=== PATIENT | female | born 1955 | race Caucasian/White ===

== ENCOUNTER 2022-08-14 16:06 | Inpatient (IN) | payer MEDICAID, MEDICARE ==
[~2022-08-14 16:06] MED LIST: Iopamidol 370 76% 100 ML VIAL ONE
[2022-08-14] MEDS ORDERED: cefTRIAXone\\ROCEPHIN 2 GM VIAL ONE (16:25)
[2022-08-14] MEDS ORDERED: Azithromycin 500 MG VIAL ONE (16:25)
[2022-08-14 16:29] LABS: Actual Bicarbonate (HCO3v) 21 mEq/L (22-28); Base Excess -2.5 mEq/L (-2.0 to +3.0); Calcium, Ionized (venous) 1.07 mmol/L (1.16-1.32); Chloride (VBG) 105 mmol/L (98-106); Hemoglobin (Hb) 13.1 g/dL (11.7-16.1); Potassium (VBG) 3.95 mmol/L (3.70-5.30); Puncture Site Other Site; RapidComm Collect By LAB TECH; Sodium 135.9 mmol/L (133-146); pH (venous) 7.43 (7.32-7.43)
[2022-08-14 16:37] LABS: #Eosinphils 0.2 10x3/uL (0.0-0.5); #Monocytes 0.8 10x3/uL (0.0-1.1); #Neutrophils 7.5 10x3/uL (1.5-8.4); %Basophils 0.2 % (0.0-2.0); %Eosinophils 1.7 % (0.0-6.0); %Lymphocytes 12.2 % (18.0-47.0); %Monocytes 8.1 % (0.0-10.0); %Neutrophils 77.4 % (40.0-75.0); Hemoglobin 11.6 g/dL (12.0-15.5); Mean Corpuscular HGB CONC 32.5 g/dL (32.0-36.0); Mean Corpuscular Hemoglobin 28.4 pg (27.0-33.0); Mean Corpuscular Volume 87.5 fl (81.6-98.3); Mean Platelet Volume 9.2 fl (7.4-10.4); Platelet Count 216 10x3/uL (150-450); RBC Distribution Width 15.7 % (11.5-14.5); Red Blood Cell (RBC) Count 4.08 10x6/uL (3.90-5.03); White Blood Cell (WBC) Count 9.7 10x3/uL (3.5-10.5)
[2022-08-14] MEDS ORDERED: Acetaminophen 500 MG TAB ONE (16:40)
[2022-08-14 16:52] LABS: ALT (SGPT) 20 U/L (8-55); AST (SGOT) 29 U/L (5-34); Alkaline Phosphatase 78 U/L (40-110); Anion Gap 17 mmol/L (10-20); BUN (Urea Nitrogen) 13 mg/dL (9.8-20.1); Calc. Creatinine Clearance 0 mL/min (70-130); Calcium 9.2 mg/dL (7.8-10.44); Carbon Dioxide 18 mmol/L (23-31); Chloride 106 mmol/L (98-107); Estimated GFR 75; Globulin 3.5 g/dL (2.4-3.5); Glucose 103 mg/dL (80-115); Protein, Total 7.5 g/dL (5.8-8.1); Sodium 137 mmol/L (136-145)
[2022-08-14] MEDS ORDERED: methylPREDNISolone Sod Succ/PF 125 MG/2 ML VIAL ONE (16:57)
[2022-08-14] MEDS ORDERED: Ondansetron PF 4 MG/2 ML Vial ONE (16:58)
[2022-08-14 17:01] LABS: Bilirubin, Total 0.7 mg/dL (0.2-1.2)
[2022-08-14 17:24] LABS: SARS-CoV-2 NAA Rapid Test Not Detected (NotDetected)
[2022-08-14] MEDS ORDERED: Albuterol Sulfate 2.5 mg/0.5 ml Neb ONE (17:34)
[2022-08-14] MEDS ORDERED: Albuterol Sulfate 2.5 mg/3 ml Neb ONE (17:35)
[2022-08-14] MEDS ORDERED: Ondansetron PF 4 MG/2 ML Vial IVP PRN (19:12)
[2022-08-14] MEDS ORDERED: Calcium Carbonate 500 MG ChewTAB PO PRN (19:12)
[2022-08-14] MEDS ORDERED: Senokot S 8.6-50 MG TAB PO PRN (19:12)
[2022-08-14] MEDS ORDERED: Guaifenesin DM 100-10/5 ML UDCUP PO PRN (19:12)
[2022-08-14] MEDS ORDERED: Acetaminophen 325 MG TAB PO PRN (19:12)
[2022-08-14 19:29] LABS: Lactic Acid 0.8 mmol/L (0.5-2.2)
[2022-08-14 20:32] VITALS: BMI 41.3
[2022-08-14] MEDS: Rosuvastatin 20 MG TAB PO SCH (21:00)
[2022-08-14] MEDS: Famotidine 20 MG TAB PO SCH (21:00)
[2022-08-14] MEDS: guaiFENesin ER 600 MG TAB PO SCH (21:00)
[2022-08-14] MEDS: Benzonatate 100 MG CAP PO SCH (21:00)
[2022-08-14] MEDS ORDERED: Lactated Ringer's 500 ML IV SCH (21:00)
[2022-08-14 23:51] LABS: Legionella Urinary Ag Negative (Negative); Strep pneumo Urine Ag NEGATIVE (NEGATIVE)
[2022-08-14] MEDS ORDERED: methylPREDNISolone Sod Succ 40 MG VIAL IVP SCH (23:59)
[2022-08-15] MEDS ORDERED: Pharmacy to Dose ABX/VANCOMYCIN IVPB PRN (00:51)
[2022-08-15] MEDS ORDERED: VANCOMYCIN 2 GRAM/400 ML BAG 2 GM in Premix Bag 1 BAG IVPB SCH (01:00)
[2022-08-15] MEDS ORDERED: VANCOMYCIN 2 GRAM/400 ML BAG ONE (01:33)
[2022-08-15] MEDS: Enoxaparin Sodium 100 MG/ML SYRINGE SC SCH ×2 (01:37→13:40)
[2022-08-15 05:05] LABS: Hemoglobin 10.9 g/dL (12.0-15.5); Mean Corpuscular Hemoglobin 28.6 pg (27.0-33.0); Mean Corpuscular Volume 89.5 fl (81.6-98.3); Mean Platelet Volume 9.4 fl (7.4-10.4); Platelet Count 208 10x3/uL (150-450); RBC Distribution Width 15.6 % (11.5-14.5); Red Blood Cell (RBC) Count 3.81 10x6/uL (3.90-5.03); White Blood Cell (WBC) Count 10.8 10x3/uL (3.5-10.5)
[2022-08-15 05:15] LABS: Anion Gap 13 mmol/L (10-20); BUN (Urea Nitrogen) 13 mg/dL (9.8-20.1); Calc. Creatinine Clearance 117 mL/min (70-130); Calcium 8.7 mg/dL (7.8-10.44); Carbon Dioxide 19 mmol/L (23-31); Chloride 111 mmol/L (98-107); Estimated GFR 88; Glucose 150 mg/dL (80-115); Potassium 4.4 mmol/L (3.5-5.1); Sodium 139 mmol/L (136-145)
[2022-08-15 05:25] LABS: MDiff Complete? YES
[2022-08-15 05:32] LABS: Band 20 % (5-11); Lymphocytes 6 % (21-51); Monocytes 2 % (0-10); Neutrophil 72 % (42-75)
[2022-08-15 05:33] LABS: Platelet Morphology Comment Appears Adequate; RBC Morphology Normal
[2022-08-15] MEDS: methylPREDNISolone Sod Succ 40 MG VIAL IVP SCH ×2 (06:20→17:56)
[2022-08-15] MEDS: Levothyroxine Sodium 50 MCG TAB PO SCH (06:20)
[2022-08-15] MEDS: Mometasone/Formoterol 200/5 60 PUFF INH SCH ×2 (07:10→20:15)
[2022-08-15] MEDS ORDERED: Enoxaparin Sodium 40 MG/0.4 ML SYRINGE SC SCH (09:00)
[2022-08-15] MEDS ORDERED: Cefepime 1 GM VIAL ONE (10:01)
[2022-08-15] MEDS: Clopidogrel Bisulfate 75 MG TAB PO SCH (10:02)
[2022-08-15] MEDS: Benzonatate 100 MG CAP PO SCH ×3 (10:02→20:47)
[2022-08-15] MEDS: guaiFENesin ER 600 MG TAB PO SCH ×2 (10:02→21:19)
[2022-08-15] MEDS: Famotidine 20 MG TAB PO SCH ×2 (10:03→21:22)
[2022-08-15] MEDS: PARoxetine 20 MG TAB PO SCH (10:03)
[2022-08-15] MEDS: Cefepime 1 GM in Sodium Chloride 0.9% 100 ML IVPB SCH ×2 (10:03→21:13)
[2022-08-15] MEDS: Oxybutynin ER 5 MG TAB PO SCH (10:04)
[2022-08-15] MEDS: Vancomycin HCl 1 GM in Sodium Chloride 0.9% 250 ML 250 ML IVPB SCH (13:40)
[2022-08-15] MEDS ORDERED: Azithromycin 500 MG in Sodium Chloride 0.9% 250 ML 250 ML IVPB SCH (17:00)
[2022-08-15] MEDS ORDERED: cefTRIAXone\\ROCEPHIN 1 GM in Sodium Chloride 0.9% 100 ML IVPB SCH (18:00)
[2022-08-15] MEDS ORDERED: ALPRAZolam 0.5 MG TAB PO PRN (18:33)
[2022-08-15] MEDS ORDERED: Furosemide 20 MG/2 ML VIAL SLOW IVP SCH (19:00)
[2022-08-15] MEDS ORDERED: Albuterol Sulfate 2.5 mg/3 ml Neb NEB SCH (19:00)
[2022-08-15] MEDS ORDERED: Furosemide 40 MG/4 ML VIAL ONE (19:57)
[2022-08-15] MEDS: Rosuvastatin 20 MG TAB PO SCH (20:49)
[2022-08-16] MEDS: Vancomycin HCl 1 GM in Sodium Chloride 0.9% 250 ML 250 ML IVPB SCH (01:42)
[2022-08-16] MEDS: Enoxaparin Sodium 100 MG/ML SYRINGE SC SCH (01:44)
[2022-08-16] MEDS: methylPREDNISolone Sod Succ 40 MG VIAL IVP SCH ×2 (07:06→18:09)
[2022-08-16] MEDS: Levothyroxine Sodium 50 MCG TAB PO SCH (07:07)
[2022-08-16] MEDS: Mometasone/Formoterol 200/5 60 PUFF INH SCH ×2 (08:15→19:40)
[2022-08-16] MEDS: PARoxetine 20 MG TAB PO SCH (10:15)
[2022-08-16] MEDS: Cefepime 2 GM in Sodium Chloride 0.9% 100 ML IVPB SCH ×2 (10:15→20:30)
[2022-08-16] MEDS: Benzonatate 100 MG CAP PO SCH ×3 (10:15→20:30)
[2022-08-16] MEDS: Clopidogrel Bisulfate 75 MG TAB PO SCH (10:15)
[2022-08-16] MEDS: Famotidine 20 MG TAB PO SCH ×2 (10:15→20:29)
[2022-08-16] MEDS: Oxybutynin ER 5 MG TAB PO SCH (10:15)
[2022-08-16] MEDS: guaiFENesin ER 600 MG TAB PO SCH ×2 (10:15→20:29)
[2022-08-16] MEDS: Apixaban 5 MG TAB PO SCH ×2 (10:18→21:50)
[2022-08-16 11:59] LABS: Vancomycin, Trough 16.2 ug/mL
[2022-08-16] MEDS ORDERED: Vancomycin HCl 750 MG in Sodium Chloride 0.9% 250 ML 250 ML IVPB SCH (13:00)
[2022-08-16] MEDS: hydrOXYzine 25 MG TAB PO PRN (18:09)
[2022-08-16] MEDS: Rosuvastatin 20 MG TAB PO SCH (20:30)
[2022-08-17] MEDS: hydrOXYzine 25 MG TAB PO PRN ×2 (01:19→09:45)
[2022-08-17] MEDS: Levothyroxine Sodium 50 MCG TAB PO SCH (06:13)
[2022-08-17] MEDS: methylPREDNISolone Sod Succ 40 MG VIAL IVP SCH ×2 (06:14→18:18)
[2022-08-17] MEDS: Mometasone/Formoterol 200/5 60 PUFF INH SCH ×2 (07:00→20:40)
[2022-08-17] MEDS: guaiFENesin ER 600 MG TAB PO SCH ×2 (09:32→21:14)
[2022-08-17] MEDS: Apixaban 5 MG TAB PO SCH ×2 (09:33→21:13)
[2022-08-17] MEDS: Clopidogrel Bisulfate 75 MG TAB PO SCH (09:33)
[2022-08-17] MEDS: PARoxetine 20 MG TAB PO SCH (09:33)
[2022-08-17] MEDS: Cefepime 2 GM in Sodium Chloride 0.9% 100 ML IVPB SCH ×2 (09:33→21:14)
[2022-08-17] MEDS: Oxybutynin ER 5 MG TAB PO SCH (09:33)
[2022-08-17] MEDS: Benzonatate 100 MG CAP PO SCH ×3 (09:33→21:14)
[2022-08-17] MEDS: Famotidine 20 MG TAB PO SCH ×2 (09:33→21:14)
[2022-08-17] MEDS ORDERED: hydrOXYzine 10 MG TAB PO PRN (11:43)
[2022-08-17] MEDS: Rosuvastatin 20 MG TAB PO SCH (21:14)
[2022-08-18 04:41] LABS: Hemoglobin 10.8 g/dL (12.0-15.5); Mean Corpuscular HGB CONC 31.9 g/dL (32.0-36.0); Mean Corpuscular Hemoglobin 28.4 pg (27.0-33.0); Mean Corpuscular Volume 89.2 fl (81.6-98.3); Mean Platelet Volume 9.4 fl (7.4-10.4); Platelet Count 224 10x3/uL (150-450); RBC Distribution Width 15.4 % (11.5-14.5); White Blood Cell (WBC) Count 8.4 10x3/uL (3.5-10.5)
[2022-08-18 04:47] LABS: Anion Gap 14 mmol/L (10-20); BUN (Urea Nitrogen) 19 mg/dL (9.8-20.1); Calc. Creatinine Clearance 110 mL/min (70-130); Calcium 9.1 mg/dL (7.8-10.44); Carbon Dioxide 22 mmol/L (23-31); Chloride 110 mmol/L (98-107); Estimated GFR 82; Glucose 131 mg/dL (80-115); Potassium 4.5 mmol/L (3.5-5.1); Sodium 141 mmol/L (136-145)
[2022-08-18] MEDS: Levothyroxine Sodium 50 MCG TAB PO SCH (06:43)
[2022-08-18] MEDS: Mometasone/Formoterol 200/5 60 PUFF INH SCH ×2 (07:10→22:58)
[2022-08-18] MEDS ORDERED: predniSONE 20 MG TAB PO SCH (08:00)
[2022-08-18] MEDS: Apixaban 5 MG TAB PO SCH ×2 (09:50→23:34)
[2022-08-18] MEDS: methylPREDNISolone Sod Succ/PF 125 MG/2 ML VIAL IVP SCH ×2 (09:51→23:38)
[2022-08-18] MEDS: Benzonatate 100 MG CAP PO SCH ×3 (09:51→23:34)
[2022-08-18] MEDS: Clopidogrel Bisulfate 75 MG TAB PO SCH (09:51)
[2022-08-18] MEDS: guaiFENesin ER 600 MG TAB PO SCH ×2 (09:51→23:39)
[2022-08-18] MEDS: Famotidine 20 MG TAB PO SCH ×2 (09:51→23:35)
[2022-08-18] MEDS: PARoxetine 20 MG TAB PO SCH (09:51)
[2022-08-18] MEDS: Cefepime 2 GM in Sodium Chloride 0.9% 100 ML IVPB SCH ×2 (09:52→23:37)
[2022-08-18] MEDS: Doxycycline 100 MG in Sodium Chloride 0.9% 100 ML IVPB SCH ×2 (09:56→23:30)
[2022-08-18] MEDS: Oxybutynin ER 5 MG TAB PO SCH (11:02)
[2022-08-18] MEDS: metroNIDAZOLE 500 MG in Premix Bag 1 BAG IVPB SCH ×2 (15:49→23:38)
[2022-08-18] MEDS: Rosuvastatin 20 MG TAB PO SCH (21:00)
[2022-08-18] MEDS: hydrALAZINE 25 MG TAB PO SCH (23:35)
[2022-08-19] MEDS: Levothyroxine Sodium 50 MCG TAB PO SCH (05:33)
[2022-08-19] MEDS: metroNIDAZOLE 500 MG in Premix Bag 1 BAG IVPB SCH ×2 (05:33→12:39)
[2022-08-19] MEDS: hydrOXYzine 10 MG TAB PO SCH ×2 (05:34→18:33)
[2022-08-19 06:23] LABS: ALT (SGPT) 44 U/L (8-55); AST (SGOT) 32 U/L (5-34); Albumin 3.6 g/dL (3.4-4.8); Alkaline Phosphatase 73 U/L (40-110); Anion Gap 13 mmol/L (10-20); BUN (Urea Nitrogen) 20 mg/dL (9.8-20.1); Bilirubin, Total 0.4 mg/dL (0.2-1.2); Calc. Creatinine Clearance 111 mL/min (70-130); Carbon Dioxide 23 mmol/L (23-31); Chloride 109 mmol/L (98-107); Estimated GFR 83; Globulin 3.3 g/dL (2.4-3.5); Glucose 98 mg/dL (80-115); Magnesium 2.2 mg/dL (1.6-2.6); Phosphorus 2.4 mg/dL (2.3-4.7); Potassium 3.9 mmol/L (3.5-5.1); Protein, Total 6.9 g/dL (5.8-8.1); Sodium 141 mmol/L (136-145)
[2022-08-19 06:47] LABS: #Monocytes 0.9 10x3/uL (0.0-1.1); #Neutrophils 6.9 10x3/uL (1.5-8.4); %Basophils 0.4 % (0.0-2.0); %Eosinophils 0.3 % (0.0-6.0); %Lymphocytes 22.3 % (18.0-47.0); %Monocytes 8.6 % (0.0-10.0); Hemoglobin 11.2 g/dL (12.0-15.5); Mean Corpuscular HGB CONC 32.3 g/dL (32.0-36.0); Mean Corpuscular Hemoglobin 28.2 pg (27.0-33.0); Mean Corpuscular Volume 87.4 fl (81.6-98.3); Mean Platelet Volume 9.5 fl (7.4-10.4); Platelet Count 260 10x3/uL (150-450); RBC Distribution Width 15.2 % (11.5-14.5); Red Blood Cell (RBC) Count 3.97 10x6/uL (3.90-5.03); White Blood Cell (WBC) Count 10.6 10x3/uL (3.5-10.5)
[2022-08-19] MEDS: Mometasone/Formoterol 200/5 60 PUFF INH SCH ×2 (07:10→20:54)
[2022-08-19] MEDS: methylPREDNISolone Sod Succ/PF 125 MG/2 ML VIAL IVP SCH ×2 (12:10→20:28)
[2022-08-19] MEDS: Cefepime 2 GM in Sodium Chloride 0.9% 100 ML IVPB SCH ×2 (12:10→20:30)
[2022-08-19] MEDS: Doxycycline 100 MG in Sodium Chloride 0.9% 100 ML IVPB SCH (12:11)
[2022-08-19] MEDS: Famotidine 20 MG TAB PO SCH ×2 (12:12→20:27)
[2022-08-19] MEDS: PARoxetine 20 MG TAB PO SCH (12:13)
[2022-08-19] MEDS: Apixaban 5 MG TAB PO SCH ×2 (12:13→20:32)
[2022-08-19] MEDS: guaiFENesin ER 600 MG TAB PO SCH ×2 (12:14→20:28)
[2022-08-19] MEDS: Benzonatate 100 MG CAP PO SCH ×3 (12:14→20:27)
[2022-08-19] MEDS: hydrALAZINE 25 MG TAB PO SCH ×2 (12:14→20:28)
[2022-08-19] MEDS: Clopidogrel Bisulfate 75 MG TAB PO SCH (12:14)
[2022-08-19] MEDS: Oxybutynin ER 5 MG TAB PO SCH (12:39)
[2022-08-19] MEDS ORDERED: Diltiazem 125 MG in Sodium Chloride 0.9% 100 ML IVPB SCH ×2 (15:30→22:00)
[2022-08-19] MEDS ORDERED: Vancomycin 1.5 GRAM/300 ML BAG 1.5 GM in Premix Bag 1 BAG IVPB SCH (16:00)
[2022-08-19] MEDS ORDERED: Furosemide 20 MG/2 ML VIAL SLOW IVP SCH ×2 (16:00→17:00)
[2022-08-19] MEDS ORDERED: Furosemide 40 MG/4 ML VIAL ONE (16:05)
[2022-08-19] MEDS: Rosuvastatin 20 MG TAB PO SCH (20:26)
[2022-08-19] MEDS ORDERED: VANCOMYCIN 1.25 GM/250 ML BAG IVPB SCH (21:00)
[2022-08-19] MEDS ORDERED: Metoprolol Tartrate 5 MG/5 ML VIAL ONE (21:38)
[2022-08-19] MEDS ORDERED: Metoprolol Tartrate 5 MG/5 ML VIAL IVP SCH (21:45)
[2022-08-20] MEDS: Vancomycin HCl 750 MG in Sodium Chloride 0.9% 250 ML 250 ML IVPB SCH ×2 (05:06→17:45)
[2022-08-20 05:44] LABS: ALT (SGPT) 43 U/L (8-55); AST (SGOT) 24 U/L (5-34); Albumin 3.7 g/dL (3.4-4.8); Alkaline Phosphatase 71 U/L (40-110); Anion Gap 13 mmol/L (10-20); BUN (Urea Nitrogen) 26 mg/dL (9.8-20.1); Bilirubin, Total 0.5 mg/dL (0.2-1.2); Calc. Creatinine Clearance 113 mL/min (70-130); Calcium 9.1 mg/dL (7.8-10.44); Carbon Dioxide 22 mmol/L (23-31); Chloride 108 mmol/L (98-107); Estimated GFR 84; Globulin 3.4 g/dL (2.4-3.5); Glucose 132 mg/dL (80-115); Potassium 4.2 mmol/L (3.5-5.1); Protein, Total 7.1 g/dL (5.8-8.1); Sodium 139 mmol/L (136-145)
[2022-08-20] MEDS: hydrOXYzine 10 MG TAB PO SCH ×2 (05:51→17:53)
[2022-08-20] MEDS: Levothyroxine Sodium 50 MCG TAB PO SCH (05:51)
[2022-08-20 06:15] LABS: #Basophils 0.1 10x3/uL (0.0-0.2); #Monocytes 0.4 10x3/uL (0.0-1.1); #Neutrophils 8.3 10x3/uL (1.5-8.4); %Basophils 0.5 % (0.0-2.0); %Lymphocytes 12.8 % (18.0-47.0); %Monocytes 3.8 % (0.0-10.0); %Neutrophils 77.7 % (40.0-75.0); Hemoglobin 12.1 g/dL (12.0-15.5); Mean Corpuscular HGB CONC 32.5 g/dL (32.0-36.0); Mean Corpuscular Hemoglobin 27.9 pg (27.0-33.0); Mean Corpuscular Volume 85.9 fl (81.6-98.3); Mean Platelet Volume 9.5 fl (7.4-10.4); Platelet Count 307 10x3/uL (150-450); RBC Distribution Width 15.2 % (11.5-14.5); Red Blood Cell (RBC) Count 4.33 10x6/uL (3.90-5.03); White Blood Cell (WBC) Count 10.6 10x3/uL (3.5-10.5)
[2022-08-20 06:20] LABS: MDiff Complete? YES
[2022-08-20] MEDS ORDERED: Ipratropium Bromide 2.5 ml Neb ONE (07:26)
[2022-08-20] MEDS: Ipratropium Bromide 0.06% Nasal Inhaler 15ml EA NARE SCH ×3 (07:34→14:47)
[2022-08-20 07:46] LABS: Band 4 % (5-11); Lymphocytes 8 % (21-51); Monocytes 6 % (0-10); Neutrophil 82 % (42-75)
[2022-08-20 07:47] LABS: Platelet Morphology Comment Appears Adequate; RBC Morphology Normal
[2022-08-20] MEDS: Ipratropium Bromide 2.5 ml Neb NEB SCH ×5 (08:10→23:45)
[2022-08-20] MEDS: Mometasone/Formoterol 200/5 60 PUFF INH SCH ×2 (08:18→19:14)
[2022-08-20] MEDS: Famotidine 20 MG TAB PO SCH ×2 (09:03→20:21)
[2022-08-20] MEDS: hydrALAZINE 25 MG TAB PO SCH ×2 (09:03→20:21)
[2022-08-20] MEDS: Benzonatate 100 MG CAP PO SCH ×3 (09:03→20:18)
[2022-08-20] MEDS: methylPREDNISolone Sod Succ/PF 125 MG/2 ML VIAL IVP SCH ×2 (09:03→20:18)
[2022-08-20] MEDS: Oxybutynin ER 5 MG TAB PO SCH (09:03)
[2022-08-20] MEDS: guaiFENesin ER 600 MG TAB PO SCH ×2 (09:03→20:21)
[2022-08-20] MEDS: PARoxetine 20 MG TAB PO SCH (09:03)
[2022-08-20] MEDS: Clopidogrel Bisulfate 75 MG TAB PO SCH (09:04)
[2022-08-20] MEDS: Cefepime 2 GM in Sodium Chloride 0.9% 100 ML IVPB SCH ×2 (09:07→20:22)
[2022-08-20] MEDS: Apixaban 5 MG TAB PO SCH ×2 (09:07→20:20)
[2022-08-20] MEDS ORDERED: Melatonin 3 MG TAB PO PRN (17:54)
[2022-08-20] MEDS: Rosuvastatin 20 MG TAB PO SCH (20:20)
[2022-08-21] MEDS: Ipratropium Bromide 2.5 ml Neb NEB SCH ×5 (03:28→20:25)
[2022-08-21 04:58] LABS: Vancomycin, Trough 11.1 ug/mL
[2022-08-21] MEDS: Vancomycin HCl 750 MG in Sodium Chloride 0.9% 250 ML 250 ML IVPB SCH ×2 (04:58→16:29)
[2022-08-21] MEDS: hydrOXYzine 10 MG TAB PO SCH ×2 (06:09→18:49)
[2022-08-21] MEDS: Levothyroxine Sodium 50 MCG TAB PO SCH (06:09)
[2022-08-21] MEDS: Mometasone/Formoterol 200/5 60 PUFF INH SCH ×2 (06:52→20:45)
[2022-08-21] MEDS: methylPREDNISolone Sod Succ/PF 125 MG/2 ML VIAL IVP SCH ×2 (08:55→20:46)
[2022-08-21] MEDS: PARoxetine 20 MG TAB PO SCH (08:55)
[2022-08-21] MEDS: Labetalol HCl 100 MG TAB PO SCH ×2 (08:55→20:47)
[2022-08-21] MEDS: Benzonatate 100 MG CAP PO SCH ×3 (08:55→20:48)
[2022-08-21] MEDS: Oxybutynin ER 5 MG TAB PO SCH (08:55)
[2022-08-21] MEDS: Clopidogrel Bisulfate 75 MG TAB PO SCH (08:56)
[2022-08-21] MEDS: hydrALAZINE 25 MG TAB PO SCH ×2 (08:56→20:47)
[2022-08-21] MEDS: guaiFENesin ER 600 MG TAB PO SCH ×2 (08:56→20:48)
[2022-08-21] MEDS: Cefepime 2 GM in Sodium Chloride 0.9% 100 ML IVPB SCH ×2 (08:56→20:45)
[2022-08-21] MEDS: Famotidine 20 MG TAB PO SCH ×2 (08:56→20:48)
[2022-08-21] MEDS: Apixaban 5 MG TAB PO SCH ×2 (09:13→20:48)
[2022-08-21] MEDS: Rosuvastatin 20 MG TAB PO SCH (20:46)
[2022-08-22] MEDS: Ipratropium Bromide 2.5 ml Neb NEB SCH ×7 (00:01→23:26)
[2022-08-22 05:41] LABS: ALT (SGPT) 65 U/L (8-55); AST (SGOT) 43 U/L (5-34); Albumin 3.5 g/dL (3.4-4.8); Alkaline Phosphatase 74 U/L (40-110); Anion Gap 11 mmol/L (10-20); BUN (Urea Nitrogen) 25 mg/dL (9.8-20.1); Bilirubin, Total 0.4 mg/dL (0.2-1.2); Calc. Creatinine Clearance 120 mL/min (70-130); Calcium 8.7 mg/dL (7.8-10.44); Carbon Dioxide 20 mmol/L (23-31); Chloride 112 mmol/L (98-107); Estimated GFR 91; Glucose 153 mg/dL (80-115); Potassium 4.2 mmol/L (3.5-5.1); Protein, Total 6.5 g/dL (5.8-8.1); Sodium 139 mmol/L (136-145)
[2022-08-22 05:51] LABS: MDiff Complete? YES
[2022-08-22 05:52] LABS: #Monocytes 0.5 10x3/uL (0.0-1.1); #Neutrophils 11.2 10x3/uL (1.5-8.4); %Basophils 0.3 % (0.0-2.0); %Lymphocytes 9.1 % (18.0-47.0); %Monocytes 3.9 % (0.0-10.0); %Neutrophils 80.5 % (40.0-75.0); Mean Corpuscular HGB CONC 32.7 g/dL (32.0-36.0); Mean Corpuscular Hemoglobin 28.1 pg (27.0-33.0); Mean Corpuscular Volume 85.9 fl (81.6-98.3); Mean Platelet Volume 9.4 fl (7.4-10.4); Platelet Count 348 10x3/uL (150-450); RBC Distribution Width 15.7 % (11.5-14.5); Red Blood Cell (RBC) Count 4.27 10x6/uL (3.90-5.03); White Blood Cell (WBC) Count 13.9 10x3/uL (3.5-10.5)
[2022-08-22] MEDS: hydrOXYzine 10 MG TAB PO SCH ×2 (06:38→17:06)
[2022-08-22] MEDS: Vancomycin HCl 750 MG in Sodium Chloride 0.9% 250 ML 250 ML IVPB SCH ×2 (06:38→17:06)
[2022-08-22] MEDS: Levothyroxine Sodium 50 MCG TAB PO SCH (06:38)
[2022-08-22] MEDS: Mometasone/Formoterol 200/5 60 PUFF INH SCH ×2 (07:00→20:02)
[2022-08-22 07:33] LABS: Band 3 % (5-11); Lymphocytes 7 % (21-51); Metamyelocyte 2 % (0-0); Monocytes 6 % (0-10); Myelocyte 1 % (0-0); Neutrophil 80 % (42-75); Reactive Lymphocytes 1 % (0-10)
[2022-08-22 07:34] LABS: Platelet Morphology Comment Appears Adequate
[2022-08-22] MEDS: Oxybutynin ER 5 MG TAB PO SCH (09:19)
[2022-08-22] MEDS: Labetalol HCl 100 MG TAB PO SCH ×2 (09:19→20:44)
[2022-08-22] MEDS: Famotidine 20 MG TAB PO SCH ×2 (09:19→20:44)
[2022-08-22] MEDS: Clopidogrel Bisulfate 75 MG TAB PO SCH (09:19)
[2022-08-22] MEDS: PARoxetine 20 MG TAB PO SCH (09:19)
[2022-08-22] MEDS: guaiFENesin ER 600 MG TAB PO SCH ×2 (09:19→20:44)
[2022-08-22] MEDS: Cefepime 2 GM in Sodium Chloride 0.9% 100 ML IVPB SCH ×2 (09:19→20:51)
[2022-08-22] MEDS: methylPREDNISolone Sod Succ/PF 125 MG/2 ML VIAL IVP SCH (09:19)
[2022-08-22] MEDS: hydrALAZINE 25 MG TAB PO SCH ×2 (09:20→20:43)
[2022-08-22] MEDS: Benzonatate 100 MG CAP PO SCH ×3 (09:20→20:44)
[2022-08-22] MEDS: Apixaban 5 MG TAB PO SCH ×2 (09:29→20:45)
[2022-08-22] MEDS ORDERED: Zolpidem Tartrate 5 MG TAB PO PRN (10:49)
[2022-08-22 11:41] LABS: Bilirubin Neg (Negative); Blood, Urine 50 (Negative); CAUTI Indications for Culture Dysuria,urgency,freq; Clarity Clear (Clear); Glucose, Urine (Dipstick) Normal (Negative); Ketone, Urine Negative (Negative); Leukocyte 25 (Negative); Nitrite Negative (Negative); Protein, Urine (Dipstick) 30 mg/dl (Neg-Trace); Urobilinogen Normal mg/dL (Less than 2)
[2022-08-22 11:43] LABS: Urine Culture Reflex No No
[2022-08-22 11:59] LABS: Bacteria/HPF 2+ HPF (None Seen); Squamous Epithelial 0-3 HPF (0-3); Yeast-Budding 1+ HPF (None Seen); Yeast-Hyphae 1+ HPF (None Seen)
[2022-08-22] MEDS ORDERED: hydrALAZINE 25 MG TAB PO SCH (14:30)
[2022-08-22 17:39] LABS: Vancomycin, Trough 10.8 ug/mL
[2022-08-22] MEDS: Rosuvastatin 20 MG TAB PO SCH (20:44)
[2022-08-23] MEDS: Ipratropium Bromide 2.5 ml Neb NEB SCH ×4 (02:47→15:15)
[2022-08-23 05:39] LABS: #Monocytes 1.1 10x3/uL (0.0-1.1); #Neutrophils 11.5 10x3/uL (1.5-8.4); %Basophils 0.2 % (0.0-2.0); %Lymphocytes 10.8 % (18.0-47.0); %Monocytes 7.2 % (0.0-10.0); %Neutrophils 76.8 % (40.0-75.0); Hemoglobin 11.8 g/dL (12.0-15.5); Mean Corpuscular HGB CONC 32.4 g/dL (32.0-36.0); Mean Corpuscular Hemoglobin 28.2 pg (27.0-33.0); Mean Corpuscular Volume 86.9 fl (81.6-98.3); Mean Platelet Volume 9.2 fl (7.4-10.4); Platelet Count 346 10x3/uL (150-450); RBC Distribution Width 15.9 % (11.5-14.5); Red Blood Cell (RBC) Count 4.19 10x6/uL (3.90-5.03)
[2022-08-23 05:52] LABS: ALT (SGPT) 69 U/L (8-55); AST (SGOT) 39 U/L (5-34); Albumin 3.3 g/dL (3.4-4.8); Alkaline Phosphatase 71 U/L (40-110); Anion Gap 11 mmol/L (10-20); BUN (Urea Nitrogen) 23 mg/dL (9.8-20.1); Bilirubin, Total 0.4 mg/dL (0.2-1.2); Calc. Creatinine Clearance 120 mL/min (70-130); Calcium 8.5 mg/dL (7.8-10.44); Carbon Dioxide 21 mmol/L (23-31); Chloride 112 mmol/L (98-107); Estimated GFR 91; Globulin 2.8 g/dL (2.4-3.5); Glucose 111 mg/dL (80-115); Potassium 4.1 mmol/L (3.5-5.1); Protein, Total 6.1 g/dL (5.8-8.1); Sodium 140 mmol/L (136-145)
[2022-08-23] MEDS: Vancomycin HCl 750 MG in Sodium Chloride 0.9% 250 ML 250 ML IVPB SCH (05:54)
[2022-08-23] MEDS: hydrOXYzine 10 MG TAB PO SCH (05:54)
[2022-08-23] MEDS: Levothyroxine Sodium 50 MCG TAB PO SCH (05:54)
[2022-08-23] MEDS: Mometasone/Formoterol 200/5 60 PUFF INH SCH (06:58)
[2022-08-23] MEDS ORDERED: Apixaban 5 MG TAB PO SCH (09:00)
[2022-08-23] MEDS ORDERED: methylPREDNISolone Sod Succ/PF 125 MG/2 ML VIAL IVP SCH (09:00)
[2022-08-23] MEDS: Cefepime 2 GM in Sodium Chloride 0.9% 100 ML IVPB SCH (11:06)
[2022-08-23] MEDS: PARoxetine 20 MG TAB PO SCH (11:07)
[2022-08-23] MEDS: Labetalol HCl 100 MG TAB PO SCH (11:07)
[2022-08-23] MEDS: Clopidogrel Bisulfate 75 MG TAB PO SCH (11:08)
[2022-08-23] MEDS: Benzonatate 100 MG CAP PO SCH (11:08)
[2022-08-23] MEDS: hydrALAZINE 25 MG TAB PO SCH (11:08)
[2022-08-23] MEDS: guaiFENesin ER 600 MG TAB PO SCH (11:08)
[2022-08-23] MEDS: Famotidine 20 MG TAB PO SCH (11:08)
[2022-08-23] MEDS: Oxybutynin ER 5 MG TAB PO SCH (11:09)
[2022-08-23 14:39] VITALS: BP 144/61; TEMP 98.4
== END 2022-08-23 14:25 | disposition home or self-care (01) | DRG 871 ==
LOC: CSHERS 16:06 → CSHTELE 19:12
PROVIDERS: ADMIT Student in an Organized Health Care Education/Training Program; ATTEND Internal Medicine
DX: A41.9 Sepsis, unspecified organism (principal); I26.99 Other pulmonary embolism without acute cor pulmonale; J18.9 Pneumonia, unspecified organism; J96.01 Acute respiratory failure with hypoxia; J44.1 Chronic obstructive pulmonary disease with (acute) exacerbation; J44.0 Chronic obstructive pulmonary disease with (acute) lower respiratory infection; Z68.41 Body mass index [BMI] 40.0-44.9, adult; I10 Essential (primary) hypertension; E78.5 Hyperlipidemia, unspecified; I25.10 Atherosclerotic heart disease of native coronary artery without angina pectoris; E03.9 Hypothyroidism, unspecified; F41.9 Anxiety disorder, unspecified; G89.29 Other chronic pain; R65.20 Severe sepsis without septic shock; E66.01 Morbid (severe) obesity due to excess calories; I48.0 Paroxysmal atrial fibrillation; Z20.822 Contact with and (suspected) exposure to COVID-19; Z82.49 Family history of ischemic heart disease and other diseases of the circulatory system; Z98.890 Other specified postprocedural states; Z87.891 Personal history of nicotine dependence; Z88.6 Allergy status to analgesic agent; Z79.899 Other long term (current) drug therapy; Z95.5 Presence of coronary angioplasty implant and graft; Z90.710 Acquired absence of both cervix and uterus
CPT/HCPCS: 36415; 36416; 71045; 71250; 71275; 78451; 80048; 80053; 80202; 81001; 82805; 83605; 83735; 83880; 84100; 84145; 85025; 85027; 85379; 87040; 87081; 87449; 87633; 87899; 93005; 93010; 93306; 93970; 94640; 94664; 94760; 94799; 96365; 96367; 96375; A9540; J0456; J0692; J0696; J1650; J1940; J2405; J2920; J2930; J3370; J3490; J7050; J7120; J7611; J7620; Q9967

== ENCOUNTER 2023-04-02 17:52 | Inpatient (IN) | payer MEDICARE, MEDICAID ==
[2023-04-02 18:19] LABS: #Basophils 0.1 10x3/uL (0.0-0.2); #Eosinphils 0.3 10x3/uL (0.0-0.5); #Monocytes 0.9 10x3/uL (0.0-1.1); #Neutrophils 7.3 10x3/uL (1.5-8.4); %Basophils 0.5 % (0.0-2.0); %Eosinophils 2.4 % (0.0-6.0); %Lymphocytes 29.4 % (18.0-47.0); %Monocytes 7.2 % (0.0-10.0); %Neutrophils 59.9 % (40.0-75.0); Hemoglobin 13.3 g/dL (12.0-15.5); Mean Corpuscular HGB CONC 32.5 g/dL (32.0-36.0); Mean Corpuscular Hemoglobin 28.5 pg (27.0-33.0); Mean Corpuscular Volume 87.8 fl (81.6-98.3); Mean Platelet Volume 9.3 fl (7.4-10.4); Platelet Count 321 10x3/uL (150-450); RBC Distribution Width 14.3 % (11.5-14.5); Red Blood Cell (RBC) Count 4.66 10x6/uL (3.90-5.03); White Blood Cell (WBC) Count 12.1 10x3/uL (3.5-10.5)
[2023-04-02 18:41] LABS: ALT (SGPT) 23 U/L (8-55); AST (SGOT) 24 U/L (5-34); Albumin 4.5 g/dL (3.4-4.8); Alkaline Phosphatase 102 U/L (40-110); Anion Gap 21 mmol/L (10-20); BUN (Urea Nitrogen) 20 mg/dL (9.8-20.1); Bilirubin, Total 0.3 mg/dL (0.2-1.2); Calc. Creatinine Clearance 0 mL/min (70-130); Calcium 10.1 mg/dL (7.8-10.44); Carbon Dioxide 21 mmol/L (23-31); Chloride 104 mmol/L (98-107); Estimated GFR 50; Glucose 103 mg/dL (80-115); Potassium 3.7 mmol/L (3.5-5.1); Protein, Total 7.5 g/dL (5.8-8.1); Sodium 142 mmol/L (136-145)
[2023-04-02] MEDS ORDERED: Aspirin Chewable 81 MG TAB ONE (19:29)
[2023-04-02] MEDS ORDERED: Nitroglycerin 2% Ointment 1 INCH/1 GM Packet ONE (19:30)
[2023-04-02] MEDS ORDERED: Guaifenesin DM 100-10/5 ML UDCUP PO PRN (19:38)
[2023-04-02] MEDS ORDERED: Zolpidem Tartrate 5 MG TAB PO PRN (19:38)
[2023-04-02] MEDS ORDERED: Calcium Carbonate 500 MG ChewTAB PO PRN (19:38)
[2023-04-02] MEDS ORDERED: Ondansetron PF 4 MG/2 ML Vial IVP PRN (19:38)
[2023-04-02] MEDS ORDERED: Senokot S 8.6-50 MG TAB PO PRN (19:38)
[2023-04-02] MEDS ORDERED: Acetaminophen 325 MG TAB PO PRN (19:38)
[2023-04-02] MEDS ORDERED: Nitroglycerin 0.4 MG TAB 1 EACH ONE (19:40)
[2023-04-02] MEDS ORDERED: Acetaminophen 325 MG TAB ONE (19:40)
[2023-04-02] MEDS ORDERED: Nitroglycerin 0.4 MG TAB (25 Tab Bottle) SL PRN (19:41)
[2023-04-02] MEDS ORDERED: Ipratropium/Albuterol 3 ML NEB NEB PRN (19:45)
[2023-04-02 22:42] VITALS: BMI 45.3
[2023-04-02] MEDS: Metoprolol Tartrate 25 MG TAB PO SCH (22:43)
[2023-04-02] MEDS: Rosuvastatin 20 MG TAB PO SCH (22:44)
[2023-04-02] MEDS: QUEtiapine 100 MG TAB PO SCH (22:44)
[2023-04-02] MEDS: Isosorbide Dinitrate 10 MG TAB PO SCH (22:44)
[2023-04-02] MEDS ORDERED: Famotidine 20 MG TAB PO SCH (23:00)
[2023-04-02] MEDS ORDERED: Enoxaparin 120 MG/0.8 ML SYRINGE SC SCH (23:00)
[2023-04-03 00:59] LABS: Troponin I Less than 0.010 ng/mL (< 0.028)
[2023-04-03 04:58] LABS: #Basophils 0.1 10x3/uL (0.0-0.2); #Eosinphils 0.3 10x3/uL (0.0-0.5); #Monocytes 0.7 10x3/uL (0.0-1.1); #Neutrophils 5.5 10x3/uL (1.5-8.4); %Basophils 0.6 % (0.0-2.0); %Eosinophils 3.1 % (0.0-6.0); %Monocytes 7.4 % (0.0-10.0); %Neutrophils 57.4 % (40.0-75.0); Hemoglobin 11.6 g/dL (12.0-15.5); Mean Corpuscular HGB CONC 32.6 g/dL (32.0-36.0); Mean Corpuscular Hemoglobin 28.7 pg (27.0-33.0); Mean Corpuscular Volume 88.1 fl (81.6-98.3); Platelet Count 262 10x3/uL (150-450); RBC Distribution Width 14.1 % (11.5-14.5); Red Blood Cell (RBC) Count 4.04 10x6/uL (3.90-5.03); White Blood Cell (WBC) Count 9.6 10x3/uL (3.5-10.5)
[2023-04-03 05:07] LABS: Anion Gap 15 mmol/L (10-20); BUN (Urea Nitrogen) 14 mg/dL (9.8-20.1); Calc. Creatinine Clearance 111 mL/min (70-130); Carbon Dioxide 21 mmol/L (23-31); Cardiac Risk 4.8 (Less than 4.5); Chloride 108 mmol/L (98-107); Cholesterol 184 mg/dl (< 200 Desired); Estimated GFR 74; Glucose 100 mg/dL (80-115); HDL Cholesterol 38 mg/dL (>60 Neg Risk); LDL Cholesterol, Calculated 118 mg/dL; Potassium 3.3 mmol/L (3.5-5.1); Sodium 141 mmol/L (136-145); Triglycerides 138 mg/dL (Less than 150)
[2023-04-03] MEDS: Levothyroxine Sodium 50 MCG TAB PO SCH (06:39)
[2023-04-03] MEDS: Mometasone/Formoterol 200/5 60 PUFF INH SCH ×2 (07:00→19:14)
[2023-04-03 07:39] LABS: Bilirubin Neg (Negative); Blood, Urine Negative (Negative); Clarity Clear (Clear); Glucose, Urine (Dipstick) Normal (Negative); Ketone, Urine Negative (Negative); Leukocyte Negative (Negative); Nitrite Negative (Negative); Protein, Urine (Dipstick) Negative (Neg-Trace); Urobilinogen Normal mg/dL (Less than 2); pH, Urine 6.5 (5.0-9.0)
[2023-04-03 07:53] LABS: Bacteria/HPF Rare-Few HPF (None Seen); RBC/HPF 0-3 HPF (0-3); Squamous Epithelial 0-3 HPF (0-3); WBC/HPF 0-3 HPF (0-3)
[2023-04-03] MEDS: Oxybutynin ER 5 MG TAB PO SCH (08:26)
[2023-04-03] MEDS: Aspirin 81 mg Enteric Coated Tablet PO SCH (08:26)
[2023-04-03] MEDS: PARoxetine 20 MG TAB PO SCH (08:26)
[2023-04-03] MEDS: Metoprolol Tartrate 25 MG TAB PO SCH ×2 (08:26→21:33)
[2023-04-03] MEDS: Famotidine 20 MG TAB PO SCH ×2 (08:26→21:33)
[2023-04-03] MEDS: Isosorbide Dinitrate 10 MG TAB PO SCH ×2 (08:26→21:33)
[2023-04-03] MEDS ORDERED: Enoxaparin 120 MG/0.8 ML SYRINGE SC SCH (09:00)
[2023-04-03] MEDS ORDERED: Potassium Chloride 20 MEQ TAB PO SCH (09:00)
[2023-04-03] MEDS: Rosuvastatin 20 MG TAB PO SCH (21:32)
[2023-04-03] MEDS: QUEtiapine 100 MG TAB PO SCH (21:32)
[2023-04-04 04:29] LABS: Anion Gap 14 mmol/L (10-20); BUN (Urea Nitrogen) 15 mg/dL (9.8-20.1); Calc. Creatinine Clearance 110 mL/min (70-130); Calcium 9.4 mg/dL (7.8-10.44); Carbon Dioxide 22 mmol/L (23-31); Chloride 109 mmol/L (98-107); Estimated GFR 73; Glucose 101 mg/dL (80-115); Sodium 141 mmol/L (136-145)
[2023-04-04 04:41] LABS: #Basophils 0.1 10x3/uL (0.0-0.2); #Eosinphils 0.3 10x3/uL (0.0-0.5); #Monocytes 0.7 10x3/uL (0.0-1.1); #Neutrophils 4.7 10x3/uL (1.5-8.4); %Basophils 0.7 % (0.0-2.0); %Eosinophils 2.9 % (0.0-6.0); %Lymphocytes 35.3 % (18.0-47.0); %Monocytes 7.4 % (0.0-10.0); %Neutrophils 53.2 % (40.0-75.0); Hemoglobin 11.5 g/dL (12.0-15.5); Mean Corpuscular Hemoglobin 28.8 pg (27.0-33.0); Mean Corpuscular Volume 89.8 fl (81.6-98.3); Mean Platelet Volume 9.3 fl (7.4-10.4); Platelet Count 251 10x3/uL (150-450); RBC Distribution Width 14.1 % (11.5-14.5); White Blood Cell (WBC) Count 8.8 10x3/uL (3.5-10.5)
[2023-04-04] MEDS: Levothyroxine Sodium 50 MCG TAB PO SCH (06:34)
[2023-04-04] MEDS: Mometasone/Formoterol 200/5 60 PUFF INH SCH (07:50)
[2023-04-04] MEDS: Oxybutynin ER 5 MG TAB PO SCH (08:36)
[2023-04-04] MEDS: PARoxetine 20 MG TAB PO SCH (08:36)
[2023-04-04] MEDS: Aspirin 81 mg Enteric Coated Tablet PO SCH (08:37)
[2023-04-04] MEDS: Isosorbide Dinitrate 10 MG TAB PO SCH (08:37)
[2023-04-04] MEDS: Famotidine 20 MG TAB PO SCH (08:37)
[2023-04-04] MEDS: Metoprolol Tartrate 25 MG TAB PO SCH (08:38)
[2023-04-04 12:12] VITALS: BP 123/68; TEMP 98.7
== END 2023-04-04 12:30 | disposition home or self-care (01) | DRG 303 ==
LOC: CSHERS 17:52 → CSHTELE 21:29
PROVIDERS: ADMIT Student in an Organized Health Care Education/Training Program; ATTEND Family Medicine
DX: I25.110 Atherosclerotic heart disease of native coronary artery with unstable angina pectoris (principal); Z68.42 Body mass index [BMI] 45.0-49.9, adult; N17.9 Acute kidney failure, unspecified; I10 Essential (primary) hypertension; E78.5 Hyperlipidemia, unspecified; J44.9 Chronic obstructive pulmonary disease, unspecified; I48.0 Paroxysmal atrial fibrillation; E66.01 Morbid (severe) obesity due to excess calories; E87.6 Hypokalemia; F17.210 Nicotine dependence, cigarettes, uncomplicated; E03.9 Hypothyroidism, unspecified; G89.29 Other chronic pain; F41.9 Anxiety disorder, unspecified; Z90.710 Acquired absence of both cervix and uterus; Z98.890 Other specified postprocedural states; Z79.01 Long term (current) use of anticoagulants; Z88.6 Allergy status to analgesic agent; Z79.899 Other long term (current) drug therapy; Z95.5 Presence of coronary angioplasty implant and graft; Z79.890 Hormone replacement therapy
CPT/HCPCS: 36415; 71045; 80048; 80053; 80061; 81001; 83605; 83880; 84443; 84484; 85025; 85379; 93005; 93010; 93306; 94760; 96360; 96361; J1650